=== PATIENT | female | born 1990 | race Caucasian/White ===

== ENCOUNTER 2020-01-18 16:29 | Emergency (ER) | payer OTHER, SELFPAY ==
--- NOTE | ~2020-01-18 | US_ITS ---
EXAMINATION: US OB <= 14 weeks fetus DATE: 01/18/2020 18:40 INDICATION: Bleeding and cramping during first trimester , reported history of prior subchor ionic hematoma on outside hospital imaging TECHNIQUE: Real-time pelvic transabdominal and transvaginal ultrasound was performed. COMPARISON: None. FINDINGS: The uterus measures 10.5 x 7.4 x 7.0 cm. There is an intrauterine gestational sac. There i s a moderate to large size subchorionic hematoma which measures 4.2 x 3.1 x 3.1 cm. A yolk sac is harpreet ntified. heart motion is identified measuring 161 beats per minute (bpm) by M-mode Doppler. The crown rump length measures 2.4 cm , which correlates with an estimated gestational age of 9 we eks and 1 day(s) (+/-) 6 day(s). The ovaries are not visualized however no adnexal abnormality is seen. There is no free fluid in the pelvis. IMPRESSION: 1. Live intrauterine with an estimated gestational age of 9 weeks and 1 day(s) (+/-) 6 day( s) and an estimated delivery date of 08/21/2020. 2. Moderate to large subchorionic hemorrhage. Reviewed, dictated and finalized at location A. IMPRESSION: 1. Live intrauterine with an estimated gestational age of 9 weeks and 1 day(s) (+/-) 6 day(s) and an estimated delivery date of 08/21/2020. 2. Moderate to large subchorionic hemorrhage.
[2020-01-18 17:02] VITALS: BP 98/54; PULSE 72; RESP 18; TEMP 36.8; O2SAT 100
[2020-01-18 17:19] LABS: Basophils Absolute Auto 0.1 K/mm3 (0.0-0.1); Basophils Percent Auto 0.5 % (0.2-1.2); Eosinophils Absolute Auto 0.3 K/mm3 (0-0.3); Eosinophils Percent Auto 2.9 % (0-4.4); Hematocrit 37.3 % (37.0-47.0); Hemoglobin 12.7 g/dL (12.0-15.0); Immature Granulocyte Absolute 0.03 K/mm3 (0.00-0.031); Immature Granulocyte Percent A 0.3 % (0-0.5); Lymphocytes Absolute Auto 1.95 K/mm3 (0.9-3.2); Lymphocytes Percent Auto 18.8 % (18.3-44.2); Mean Corpuscular Hemoglobin 31.7 pg (26-34); Mean Platelet Volume 10.5 fl (7.4-10.4); Monocytes Absolute Auto 0.7 K/mm3 (0.1-0.6); Monocytes Percent Auto 6.6 % (2.6-8.5); Neutrophils Absolute Auto 7.4 K/mm3 (1.3-6.7); Neutrophils Percent Auto 70.9 % (45.5-73.1); Platelet Count Result 291 k/mm3 (150-375); Red Blood Count 4.01 M/mm3 (4.2-5.4); Red Cell Distribution Width 12.2 % (11.5-14.5); White Blood Count 10.4 K/mm3 (4.5-10.0)
--- NOTE | 2020-01-18 17:38 | PC.NURSE ---
Patient has already been given RhoGam by [facility]IN
[2020-01-18 17:55] VITALS: BP 89/55; BP 96/61; BP 98/61; PULSE 74; PULSE 77
--- NOTE | 2020-01-18 18:22 | ED.FEMALEGU ---
HPI - Female Genitourinary General Chief complaint: Vaginal Bleeding <Kimberly Ray PA-C - Last Filed: 01/18/20 20:12> Stated complaint: 9wks preg, bleeding/cramping <Kimberly Ray PA-C - Last Filed: 01/18/20 20:12> Time Seen by Provider: 01/18/20 17:43 <CAIO Saavedra Last Filed: 01/18/20 20:12> Source: patient <CAIO Saavedra Last Filed: 01/18/20 20:12> Mode of arrival: ambulatory <CAIO Saavedra Last Filed: 01/18/20 20:12> Limitations: no limitations <CAIO Saavedra Last Filed: 01/18/20 20:12> History of Present Illness HPI Narrative: Patient presents with chief complaint of vaginal bleeding that has intensified and was accompanied by cramping just prior to arrival. Patient states that she is approximately 9.5 weeks and was told that she has hemorrhaging in her uterus and that is why she is bleeding. Patient states that the bleeding originally presented 5 weeks ago but she stopped bleeding for over 1 week prior to today. Patient denies fever, chills, nausea, vomiting, diarrhea. Patient is G3, P2 without any prior complications. Patient states that she is O- and when her bleeding began 5 weeks ago her AMMONIA NITRATE OPERATOR Dr. Ontiveros at [facility] gave her a RhoGam shot. Patient states that she feels that something is going on that is not quite right so she came to the emergency department to be evaluated. <Kimberly Ray PA-C - Last Filed: 01/18/20 20:12> Related Data Home medications: Home Medications Medication Instructions Recorded Confirmed progesterone micronized 200 mg PO DAILY 01/18/20 <CAIO Saavedra Last Filed: 01/18/20 20:12> Allergies/Adverse reactions: Allergies Allergy/AdvReac Type Severity Reaction Status Date / Time codeine Allergy Unknown HEADACHE Verified 01/18/20 17:31 <CAIO Saavedra Last Filed: 01/18/20 20:12> Review of Systems Review of Systems: Narrative: CONSTITUTIONAL: Denies fever, chills, or sweats. EYES: Denies visual changes, redness, or discharge. ENT: Denies rhinorrhea, congestion, sore throat, or otalgia. CARDIOVASCULAR: Denies chest pain, palpitations, or edema. RESPIRATORY: Denies cough or dyspnea. GASTROINTESTINAL: Denies abdominal pain, nausea, vomiting, or diarrhea. GENITOURINARY: Reports vaginal bleeding in denies dysuria or hematuria. SKIN: Denies rash or itching. MUSCULOSKELETAL: Denies back pain, myalgia, or joint pain NEUROLOGIC: Denies headache, numbness, dizziness, or weakness. PSYCHIATRIC: Denies anxiety or depression. <Kimberly Ray PA-C - Last Filed: 01/18/20 20:12> Exam Narrative: Exam Narrative: GENERAL: Well-appearing, well-nourished. HEAD: Normocephalic, atraumatic. EYES: PERRLA and EOMI. ENT: Nares clear, no rhinorrhea or epistaxis. Mucous membranes moist. Oropharynx without tonsillar hypertrophy exudate or other lesions. Bilateral TMs pearly webb nonbulging NECK: Supple. No adenopathy or masses. No vertebral tenderness or loss of ROM. CHEST: Clear to auscultation. No respiratory distress. No wheezes rales or rhonchi HEART: Regular rate and rhythm. Normal peripheral pulses. ABDOMEN: Soft, nontender, nondistended, normal active bowel sounds. No bruises noted. VAGINAL: Mild dark red vaginal bleeding from cervix, no clots or tissues noted. OS closed. EXTREMITIES: No acute changes in ROM. No edema. SKIN: Warm, dry, no rash. NEURO: No focal deficits. Alert and oriented x3. PSYCH: Normal mood and affect. <Kimberly Ray PA-C - Last Filed: 01/18/20 20:12> Course Vital Signs Vital signs: Vital Signs Temperature 36.8 C 01/18/20 17:02 Pulse Rate 72 01/18/20 17:02 Respiratory Rate 18 01/18/20 17:02 Blood Pressure 98/54 L 01/18/20 17:02 Pulse Oximetry 100 01/18/20 17:02 Temperature 36.8 C 01/18/20 17:02 Pulse Rate 83 01/18/20 19:31 Respiratory Rate 17 01/18/20 18:36 Blood Pressure 102/63
--- NOTE | 2020-01-18 18:33 | PC.NURSE ---
Patient returned to room
[2020-01-18 18:36] VITALS: BP 120/59; PULSE 85; RESP 17; O2SAT 95
[2020-01-18 19:31] VITALS: BP 102/63; PULSE 83; O2SAT 100
[2020-01-18 20:28] VITALS: BP 99/51; PULSE 86; RESP 17; O2SAT 98
== END 2020-01-18 20:29 | disposition home or self-care (01) ==
PROVIDERS: Emergency Provider Emergency Medicine
DX: O46.8X1 Other antepartum hemorrhage, first trimester (principal); Z3A.09 9 weeks gestation of pregnancy
CPT/HCPCS: 36415; 76801; 84702; 85025; 85461; 86880; 86902; 99284

== ENCOUNTER 2020-03-09 07:41 | Emergency (ER) | payer OTHER, SELFPAY ==
[2020-03-09] VITALS (7 sets, daily range): BP systolic 101–109; BP diastolic 57–88; PULSE 75–80; RESP 18; TEMP 36.5; O2SAT 100
--- NOTE | 2020-03-09 07:54 | PC.NURSE ---
Pt to ED with complaints of abdominal cramping x1 week. Pt states she is currently 16 weeks . Pt has known subchorionic hemorrhage which she reports had gotten bigger with last ultrasound. Pt is scheduled to follow up on 03/26 for repeat ultrasound. Pt denies vaginal bleeding, discharge, or symptoms. Dr. Patricia at bedside with ultrasound.
--- NOTE | 2020-03-09 08:00 | ED.ABDPAIN ---
HPI - Abdominal Pain General Chief Complaint: Unspecified Stated Complaint: 16 wks , cramping Time Seen by Provider: 03/09/20 07:45 History of Present Illness HPI narrative: 29 yo female at approximately 16 weeks gestation presents to the ED for abdominal cramping. She has had cramps for a few weeks, getting worse. Constatn. Mild improvement with Tylenol. Know large subchorionic hemorrhage seen on US. No vaginal bleeding/discharge, nausea, vomiting, diarrhea, fever. Related Data Home Medications Medication Instructions Recorded Confirmed progesterone micronized 200 mg PO DAILY 01/18/20 03/09/20 Allergies Allergy/AdvReac Type Severity Reaction Status Date / Time codeine AdvReac Unknown HEADACHE Verified 03/09/20 07:50 Review of Systems Review of Systems: All systems reviewed & are unremarkable except as noted in HPI and below Constitutional: Constitutional: Denies chills and Denies fever(s) Cardiovascular: Cardiovascular: Denies chest pain Respiratory: Respiratory: Denies dyspnea Gastrointestinal: Gastrointestinal: Reports abdominal pain, Reports constipation, Denies diarrhea, Denies nausea and Denies vomiting Genitourinary: Genitourinary: Denies abnormal vaginal bleeding, Denies dysuria and Denies vaginal discharge Musculoskeletal: Musculoskeletal: Denies back pain Neurologic: Denies dizziness and Denies weakness [facility] Social History Social History Gender identity (if verbalized by the patient): Female Exam Const: General: healthy appearing, no acute distress and alert Orientation/consciousness: patient oriented x3 HENMT: Head: normal to inspection Neck: Neck: normal visual inspection and no lymphadenopathy Chest: Chest palpation & inspection: no tenderness Resp: Effort & Inspection: normal respiratory effort Auscultation: clear to auscultation bilaterally, no rales, no rhonchi and no wheezes Cardio: Jugular venous distension: no JVD Rate: regular rate Rhythm: regular rhythm Heart sounds: no murmurs GI: Inspection: non-distended GI Palp: Yes Soft to palpation, Yes Tenderness to palpation present (GI) (mild, suprapubic), No Guarding due to palpation present (GI) and No Rebound tenderness present Skin: General skin exam: normal color Neuro: General: patient oriented x3 and moves all extremities Speech: normal speech Extrem: General: no edema Psych: Appearance: well kempt Affect: normal affect Procedures Other Procedure Procedure 1: Other Procedure: Bedside Ultrasound Fetus grossly normal for reported dates FHR 158 apparent large subchorionic hematoma Course Vital Signs Vital signs: Vital Signs Temperature 36.5 C 03/09/20 07:47 Pulse Rate 80 03/09/20 07:47 Respiratory Rate 18 03/09/20 07:47 Blood Pressure 109/88 03/09/20 07:47 Pulse Oximetry 100 03/09/20 07:47 Temperature 36.5 C 03/09/20 07:47 Pulse Rate 75 03/09/20 09:22 Respiratory Rate 18 03/09/20 09:22 Blood Pressure 101/57 L 03/09/20 09:24 Pulse Oximetry 100 03/09/20 09:22 MDM - Abdominal Pain MDM Narrative Medical decision making narrative: Feeling better after dicyclomine. rh negative, but no bleeding at this time requiring rhogam Differential Diagnosis Differential diagnosis: Likely abdominal pain, constipation and other (subchorionic hematoma, UTI) Medical Records Attestation: I reviewed the patient's medical records. Lab Data Attestation: I reviewed the patient's lab results. Labs: Lab Results 03/09/20 Range/Units 08:24 Urine Color Yellow (Yellow) Urine Appearance Cloudy H (Clear) Urine pH 6.0 (5.0-9.0) Ur Specific [place] 1.024 (1.001-1.035) Urine Protein 1+ H (Negative) mg/dL Urine Glucose (UA) Negative (Negative) mg/dL Urine Ketones Negative (Negative) mg/dL Ur Blood (Man) 1+ H (Negative) Urine Nitrate Negative (Negative) Urine Bilir
[2020-03-09] MEDS: DICYCLOMINE HCL INJ 20 MG/2 ML VIAL IM (08:09)
[2020-03-09 08:46] LABS: Add Urine Microscopic? YES; Appearance Urine Cloudy (Clear); Bacteria Urine Trace /hpf; Bilirubin Urine Negative (Negative); Blood Urine 1+ (Negative); Color Urine Yellow (Yellow); Glucose Urine UA Negative (Negative); Ketones Urine Negative (Negative); Leukocyte Esterase Ur Negative LEU/UL (Negative); Mucus Urine Moderate /lpf; Nitrate Urine Negative (Negative); Protein Urine 1+ mg/dL (Negative); Specific Grav Ur 1.024 (1.001-1.035); Squamous Epithelial Cell Urine Many /hpf (Few); Urobilinogen Urine Negative mg/dL (<2.0); WBC Urine 0-3 /hpf
== END 2020-03-09 09:30 | disposition home or self-care (01) ==
PROVIDERS: Emergency Provider Emergency Medicine
DX: O26.892 Other specified pregnancy related conditions, second trimester (principal); R10.9 Unspecified abdominal pain; O46.8X2 Other antepartum hemorrhage, second trimester; Z3A.16 16 weeks gestation of pregnancy
CPT/HCPCS: 81001; 96372; 99283; J0500

== ENCOUNTER 2020-03-13 16:30 | Observation (INO) | payer OTHER, SELFPAY ==
[2020-03-13] VITALS (15 sets, daily range): BP systolic 44–124; BP diastolic 28–92; PULSE 71–118; RESP 18; TEMP 36.6–36.8; BMI 24.2
--- NOTE | ~2020-03-13 | US_ITS ---
EXAMINATION: US OB limited DATE: 03/13/2020 18:34 INDICATION: Assess well-being, placenta and cervical length during second trimester of pregnanc y TECHNIQUE: Real-time ultrasound of the pelvis was performed. The interpreting radiologist was not pre sent for the study. COMPARISON: 01/18/2020 FINDINGS: There is a single living fetus in transverse lie with head to maternal right. The placenta is posteri or with caudal margin 3.5 cm from the internal cervical os. heart rate is 144 beats per minute (bpm). The amniotic fluid volume is subjectively normal. Normal cervical length of 4.1 cm. IMPRESSION: 1. Single living fetus in transverse lie with heart rate of 144 bpm. 2. Normal posterior placenta and normal cervical length of 4.1 cm. Reviewed, dictated and finalized at location A. SPORT INSTRUCTOR
--- NOTE | 2020-03-13 16:30 | OBADM ---
This patient, Brittani Orr, admitted to the OB room OB Post 117 for observation. Patient/family oriented to hospital policies and general routines including ID bracelet, bed and alarms, visiting hours, pain management, procedures, bathroom and other care routines, personal items, smoking policy, room service/diet, and visiting hours. Patient/Family are encouraged to report perceived risks to care and to ask questions if they do not understand what they are told or what they should do.
--- NOTE | 2020-03-13 17:00 | PC.NURSE ---
Called Dr. Pastor and notified pt admission from ED for vaginal bleeding. reported amount of vaginal bleeding and FHT 160 via Doppler order received for IV, Lab, KB, Type Ultrasound. .
[2020-03-13 17:32] LABS: Basophils Absolute Auto 0.1 K/mm3 (0.0-0.1); Basophils Percent Auto 0.4 % (0.2-1.2); Eosinophils Absolute Auto 0.2 K/mm3 (0-0.3); Eosinophils Percent Auto 1.4 % (0-4.4); Hematocrit 33.1 % (37.0-47.0); Hemoglobin 11.3 g/dL (12.0-15.0); Immature Granulocyte Absolute 0.07 K/mm3 (0.00-0.031); Immature Granulocyte Percent A 0.4 % (0-0.5); Lymphocytes Absolute Auto 1.54 K/mm3 (0.9-3.2); Lymphocytes Percent Auto 9.5 % (18.3-44.2); Mean Corpuscular HGB Conc 34.1 g/dl (32-36); Mean Corpuscular Hemoglobin 32.4 pg (26-34); Mean Corpuscular Volume 94.8 fl (80-100); Monocytes Absolute Auto 0.9 K/mm3 (0.1-0.6); Monocytes Percent Auto 5.3 % (2.6-8.5); Neutrophils Absolute Auto 13.5 K/mm3 (1.3-6.7); Platelet Count Result 223 k/mm3 (150-375); Red Blood Count 3.49 M/mm3 (4.2-5.4); Red Cell Distribution Width 12.9 % (11.5-14.5); White Blood Count 16.3 K/mm3 (4.5-10.0)
[2020-03-13] MEDS: LACTATED RINGERS 1,000 ML 150 ML IV CONT (20:11)
[2020-03-13] MEDS: RHO(D) IMMUNE GLOBULIN 300 MCG SYRINGE IM (23:03)
[2020-03-14 00:35] VITALS: BP 156/129; PULSE 131
[2020-03-14 00:39] VITALS: BP 110/59; PULSE 80
[2020-03-14] MEDS: LACTATED RINGERS 1,000 ML 150 ML IV CONT (02:57)
[2020-03-14 02:59] VITALS: BP 95/53; PULSE 72
[2020-03-14 05:47] LABS: Basophils Percent Auto 0.3 % (0.2-1.2); Eosinophils Absolute Auto 0.3 K/mm3 (0-0.3); Eosinophils Percent Auto 2.5 % (0-4.4); Hematocrit 27.9 % (37.0-47.0); Hemoglobin 9.6 g/dL (12.0-15.0); Immature Granulocyte Absolute 0.06 K/mm3 (0.00-0.031); Immature Granulocyte Percent A 0.6 % (0-0.5); Lymphocytes Absolute Auto 1.86 K/mm3 (0.9-3.2); Lymphocytes Percent Auto 17.2 % (18.3-44.2); Mean Corpuscular HGB Conc 34.4 g/dl (32-36); Mean Platelet Volume 10.1 fl (7.4-10.4); Monocytes Absolute Auto 0.7 K/mm3 (0.1-0.6); Monocytes Percent Auto 6.3 % (2.6-8.5); Neutrophils Absolute Auto 7.9 K/mm3 (1.3-6.7); Neutrophils Percent Auto 73.1 % (45.5-73.1); Platelet Count Result 180 k/mm3 (150-375); Red Cell Distribution Width 12.8 % (11.5-14.5); White Blood Count 10.8 K/mm3 (4.5-10.0)
[2020-03-14 06:21] VITALS: BP 104/60; PULSE 75
--- NOTE | 2020-03-14 07:02 | PC.NURSE ---
0645--Pt reports small amount of bleeding with urination-small amount observed with small pea-sized clot. Pt reports no pain.
--- NOTE | 2020-03-14 10:10 | PC.NURSE ---
1000--Vss. Pt reports no pain. No vaginal bleeding upon urination.Dr. Pastor at bedside to discuss plan of care. DC orders given.
--- NOTE | 2020-03-14 10:16 | PM.IMHP ---
H&P: HPI History of Present Illness Date/Time: 03/14/20 10:16 Chief complaint: vaginal bleeding Narrative: Brittani Orr is a 29 year old female at 17 weeks who came in through ER 03/13/2020 for c/o vaginal bleeding similar to a heavy period. She is a patient of Dr. Rothman in [place] and has had 1st trimester bleeding and subchorionic hemorrhage this . She has mild cramping. No CP, SOB, dizziness. No problems in first two pregnancies. Review of Systems Review of Systems: All systems reviewed & are unremarkable except as noted in HPI and below PMFSH Social History Social History Gender identity (if verbalized by the patient): Female Meds Home Medications and Allergies Home Medications Medication Instructions Recorded Confirmed Type progesterone micronized 200 mg PO DAILY 01/18/20 03/13/20 History 1 tab-cap PO DAILY 03/09/20 03/13/20 History dicyclomine 10 mg PO TID #10 cap 03/09/20 03/13/20 Rx Allergies Allergy/AdvReac Type Severity Reaction Status Date / Time codeine AdvReac Unknown HEADACHE Verified 03/09/20 07:50 Vital Signs Vital Signs - 24 hr 03/13/20 16:48 03/13/20 17:01 03/13/20 17:58 Temperature 36.8 C Pulse Rate 95 87 Respiratory Rate 18 Blood Pressure 124/78 108/63 03/13/20 18:33 03/13/20 18:46 03/13/20 18:48 Temperature Pulse Rate 71 118 H 75 Respiratory Rate Blood Pressure 105/51 L 44/28 L 103/62 03/13/20 19:03 03/13/20 19:17 03/13/20 19:30 Temperature Pulse Rate 71 81 78 Respiratory Rate Blood Pressure 113/65 111/73 110/92 H 03/13/20 19:33 03/13/20 19:35 03/13/20 20:02 Temperature Pulse Rate 82 82 72 Respiratory Rate Blood Pressure 78/35 L 99/56 L 100/80 03/13/20 21:00 03/13/20 22:00 03/13/20 22:01 Temperature 36.6 C Pulse Rate 92 73 Respiratory Rate Blood Pressure 109/49 L 101/52 L 03/14/20 00:35 03/14/20 00:39 03/14/20 02:59 Temperature Pulse Rate 131 H 80 72 Respiratory Rate Blood Pressure 156/129 H 110/59 L 95/53 L 03/14/20 06:21 Temperature Pulse Rate 75 Respiratory Rate Blood Pressure 104/60 Exam Const: General: healthy appearing and no acute distress Resp: Auscultation: clear to auscultation bilaterally Cardio: Rate: regular rate Rhythm: regular rhythm GI: Inspection: normal to inspection and non-distended GI Palp: Yes Soft to palpation and No Tenderness to palpation present (GI) : OB/external & speculum: external exam normal and Active bleeding present Manual OB Exam: Not dilated nor effaced Extrem: General: no pedal edema and no calf tenderness Psych: Mental Status: mental status grossly normal H&P: Results Labs Labs: Short CBC 03/13/20 03/14/20 Range/Units 17:22 05:07 WBC 16.3 H 10.8 H (4.5-10.0) K/mm3 Hgb 11.3 L 9.6 L (12.0-15.0) g/dL Hct 33.1 L 27.9 L (37.0-47.0) % Plt Count 223 180 (150-375) k/mm3 Assessment and Plan Assessment and plan (1) Threatened in second trimester: Code(s): O20.0 - Threatened Status: Acute Assessment and Plan: Viable fetus with no visible subchorionic hemorrhage on ultrasound. Observe and monitor bleeding closely. Plan to repeat CBC (no anemia on admission). Patient was counseled that fetus is not viable outside at this gestational age, and all we can do is watch and wait. Bleeding may stop, and she may continue to carry this indefinitely; or bleeding may worsen, which could lead to miscarriage or intrauterine demise. I do recommend pelvic rest and avoiding any unnecessary strenuous activity such as heavy lifting. She expressed understanding. (2) Rh negative status during in second trimester, antepartum: Code(s): O26.892 - Other specified related conditions, second trimester; Z67.91 - Unspecified blood type, Rh negative Status: Acute A
--- NOTE | 2020-03-14 10:24 | PM.OBDSVD ---
DS: Admitting Diagnosis Admitting Diagnosis Admitting Diagnosis: vaginal bleeding DS: Discharge Diagnosis Discharge Diagnosis (1) Threatened in second trimester: Code(s): O20.0 - Threatened Status: Acute (2) Rh negative status during in second trimester, antepartum: Code(s): O26.892 - Other specified related conditions, second trimester; Z67.91 - Unspecified blood type, Rh negative Status: Acute OB - DS: Summary OB Procedures : None OB Procedures Intrapartum: Other OB Procedures: : None Time Spent with Patient Time attestation: Total time spent providing and/or coordinating discharge services: DS: Data Data Completed and Pending Labs on day of discharge: Labs from last 24 hours 03/14/20 03/13/20 03/13/20 05:07 17:22 17:22 WBC 10.8 H 16.3 H RBC 3.00 L 3.49 L Hgb 9.6 L 11.3 L Hct 27.9 L 33.1 L MCV 93.0 94.8 MCH 32.0 32.4 MCHC 34.4 34.1 RDW 12.8 12.9 Plt Count 180 223 MPV 10.1 10.0 Immature Gran % (Auto) 0.6 H 0.4 Neut % (Auto) 73.1 83.0 H Lymph % (Auto) 17.2 L 9.5 L [place] % (Auto) 6.3 5.3 Eos % (Auto) 2.5 1.4 Baso % (Auto) 0.3 0.4 Lymph # (Auto) 1.86 1.54 [place] # (Auto) 0.7 H 0.9 H Eos # (Auto) 0.3 0.2 Baso # (Auto) 0.0 0.1 Abs Immat Gran (auto) 0.06 H 0.07 H Absolute Neuts (auto) 7.9 H 13.5 H Absolute Nucleated RBC 0.0 0.0 Nucleated RBC % 0.0 0.0 Blood Type O Negative Antibody Screen Negative Screen Negative KB Hemoglobin Negative Doses of RhIg Required 1 Discharge Plan Discharge Attending physician on discharge: Seema Pastor Discharging Clinician: Seema Pastor Patient Disposition: Home, Self-Care Activity: may shower and pelvic rest Diet: as tolerated Patient Instructions: Antibiotic Form Stand Alone Forms: General Discharge Information Follow-up/Referrals: [facility] [Outside] (Call Dr. Rothman greenstone polisher operator today to arrange follow up) Discharge Medications: Continued progesterone micronized 200 mg capsule 200 mg PO DAILY RF: 0 dicyclomine 10 mg capsule 10 mg PO TID Qty: 10 RF: 0 No Action 1 tab-cap PO DAILY RF: 0 Date of admission: 03/13/20 16:30 Primary Care Provider: PHYSICIAN,FLOAT PHLEBOTOMIST Admitting Provider: Seema Pastor Attending physician on admission: Seema Pastor Condition: Improved
--- NOTE | 2020-03-14 10:27 | P.PNOB_ITS ---
OB - PN: Subj Subjective Date/time seen: 03/14/20 10:27 Bleeding has slowed overnight and now is minimal and 'stringy. No further cramping. No leaking fluid. + movement OB - PN: Obj Data Labs CBC & Chem 7: 03/14/20 05:07 Labs: Laboratory Results - last 24 hr 03/13/20 03/13/20 03/14/20 17:22 17:22 05:07 WBC 16.3 H 10.8 H RBC 3.49 L 3.00 L Hgb 11.3 L 9.6 L Hct 33.1 L 27.9 L MCV 94.8 93.0 MCH 32.4 32.0 MCHC 34.1 34.4 RDW 12.9 12.8 Plt Count 223 180 MPV 10.0 10.1 Immature Gran % (Auto) 0.4 0.6 H Neut % (Auto) 83.0 H 73.1 Lymph % (Auto) 9.5 L 17.2 L [place] % (Auto) 5.3 6.3 Eos % (Auto) 1.4 2.5 Baso % (Auto) 0.4 0.3 Lymph # (Auto) 1.54 1.86 [place] # (Auto) 0.9 H 0.7 H Eos # (Auto) 0.2 0.3 Baso # (Auto) 0.1 0.0 Abs Immat Gran (auto) 0.07 H 0.06 H Absolute Neuts (auto) 13.5 H 7.9 H Absolute Nucleated RBC 0.0 0.0 Nucleated RBC % 0.0 0.0 Blood Type O Negative Antibody Screen Negative Screen Negative KB Hemoglobin Negative Doses of RhIg Required 1 Imaging Radiologist's impression: Impressions Obstetrics Ultrasound 03/13/20 18:47 IMPRESSION: 1. Single living fetus in transverse lie with heart rate of 144 bpm. 2. Normal posterior placenta and normal cervical length of 4.1 cm. OB - PN A/P Assessment and Plan (1) Threatened in second trimester: Code(s): O20.0 - Threatened Status: Acute Assessment and Plan: Bleeding has slowed and fetus viable. Discharge home. I advised pelvic rest an d to avoid strenuous activity and heavy lifting for now. Call her regular environmental remediation specialist Dr. Rothman today to arrange follow up. (2) Rh negative status during in second trimester, antepartum: Code(s): O26.892 - Other specified related conditions, second trimester; Z67.91 - Unspecified blood type, Rh negative Status: Acute Assessment and Plan: She received rhogam 03/13. KB negative Time Spent With Patient Time: Total time spent is greater than 50% in coordination of care (as documented) at patient's floor/unit and/or counseling patient: Review of Systems Review of Systems: All systems reviewed & are unremarkable except as noted in HPI and below Exam Const: General: no acute distress and alert Resp: Auscultation: clear to auscultation bilaterally Cardio: Rate: regular rate Rhythm: regular rhythm GI: Inspection: non-distended GI Palp: Yes Soft to palpation and No Tenderness to palpation present (GI) : Manual OB Exam: Not dilated nor effaced Extrem: General: no pedal edema and no calf tenderness Psych: Mental Status: mental status grossly normal
== END 2020-03-14 10:38 | disposition home or self-care (01) ==
PROVIDERS: Admitting Provider Obstetrics & Gynecology; Visit Provider Obstetrics & Gynecology
DX: O20.0 Threatened abortion (principal); Z3A.17 17 weeks gestation of pregnancy; O36.0120 Maternal care for anti-D [Rh] antibodies, second trimester, not applicable or unspecified; O26.892 Other specified pregnancy related conditions, second trimester
CPT/HCPCS: 36415; 76815; 85025; 85460; 85461; 90384; 96360; 96361; 96372; G0378; G0379; J2790; J7120

== ENCOUNTER 2020-03-27 09:33 | Emergency (ER) | payer OTHER, SELFPAY ==
--- NOTE | ~2020-03-27 | US_ITS ---
EXAMINATION: US OB limited DATE: 03/27/2020 11:09 INDICATION: Vaginal bleeding. Second trimester. TECHNIQUE: Real-time ultrasound of the pelvis was performed. COMPARISON: Ultrasound 03/13/2020, 01/18/2020 FINDINGS: There is a single fetus in transverse lie. The placenta is fundal and posterior. There is a 3.3 x 3. 6 x 1.2 cm subchorionic hematoma. heart rate is 144 beats per minute (bpm). The amniotic fluid volume is subjectively normal. IMPRESSION: 1. Single living fetus in transverse lie. 2. Subchorionic hematoma. Reviewed, dictated and finalized at location A. DESIGNER/CREATIVE DIRECTOR
[2020-03-27 09:44] VITALS: BP 119/70; PULSE 73; RESP 18; TEMP 36.7; O2SAT 100
--- NOTE | 2020-03-27 10:04 | ED.GENADULT ---
HPI - General Adult General Chief complaint: Abdominal Pain Stated complaint: CRAMPING Time Seen by Provider: 03/27/20 09:41 Source: patient Mode of arrival: EMS Limitations: no limitations History of Present Illness HPI narrative: Patient is a 29 year old female at 19 weeks who came in through ER 03/13/2020 been presented to the [facility] on 03/14/2020 for cramping and bleeding. She was seen by Dr Pastor, diagnosed with threatened , and discharged home to follow up with her OBGYN Dr Rothman in [place]. Patient states she saw her OBGYN Dr Rothman on and was told she may be moving to a higher level of care and delivery at [employer]. She has had bleeding that began in the first trimester and second and subchorionic hemorrhage this . She reports she had sudden onset cramping at 9am that has now subsided but she can tell it will come back. She has begun having a small amount of dark bleeding. Patient is RH negative and was given Rhogam durig her 03/14/2020 visit. No CP, SOB, dizziness. No problems in first two pregnancies. Related Data Home Medications Medication Instructions Recorded Confirmed progesterone micronized 200 mg PO DAILY 01/18/20 03/13/20 1 tab-cap PO DAILY 03/09/20 03/13/20 Allergies Allergy/AdvReac Type Severity Reaction Status Date / Time codeine AdvReac Unknown HEADACHE Verified 03/27/20 09:50 Review of Systems Review of Systems: Narrative: CONSTITUTIONAL: Denies fever, chills, or sweats. EYES: Denies visual changes, redness, or discharge. ENT: Denies rhinorrhea, congestion, sore throat, or otalgia. CARDIOVASCULAR: Denies chest pain, palpitations, or edema. RESPIRATORY: Denies cough or dyspnea. GASTROINTESTINAL: Denies abdominal pain, nausea, vomiting, or diarrhea. GENITOURINARY: Reports pelvic cramping and bleeding denies dysuria or hematuria. SKIN: Denies rash or itching. MUSCULOSKELETAL: Denies back pain, joint pain, or myalgia. NEUROLOGIC: Denies headache, numbness, dizziness, or weakness. PSYCHIATRIC: Denies anxiety or depression. [facility] Social History Social History Gender identity (if verbalized by the patient): Female Exam Narrative: Exam Narrative: GENERAL: Well-appearing, well-nourished, and in no acute distress. HEAD: Normocephalic, atraumatic. EYES: PERRLA and EOMI. NECK: Supple. No adenopathy or masses. CHEST: Clear to auscultation. No respiratory distress. No wheezes rales or rhonchi HEART: Regular rate and rhythm. No murmur heard. Normal peripheral pulses. ABDOMEN: Soft, mild tenderness with palpation of lower pelvic abdomen, nondistended, normal active bowel sounds. : Large amount of bloo din vaginal canal. Suction used to attempt to see cervix however patient states the speculum exam is to uncomfortable and it had to be stopped without direct visualization of the cervix. No large clots or tissue noted in the vault. EXTREMITIES: Normal range of motion. No edema. SKIN: Warm, dry, no rash. NEURO: No focal deficits. Alert and oriented x3. PSYCH: Normal mood and affect. Course Vital Signs Vital signs: Vital Signs Temperature 98.1 F 03/27/20 09:44 Pulse Rate 73 03/27/20 09:44 Respiratory Rate 18 03/27/20 09:44 Blood Pressure 119/70 03/27/20 09:44 Pulse Oximetry 100 03/27/20 09:44 Temperature 98.1 F 03/27/20 09:44 Pulse Rate 79 03/27/20 11:45 Respiratory Rate 22 H 03/27/20 11:45 Blood Pressure 125/74 03/27/20 11:45 Pulse Oximetry 100 03/27/20 11:45 Medical Decision Making MDM Narrative Medical decision making narrative: Patient is very upset because she wants somebody to make the bleeding stopped immediately and to tell her why it is that she continues to have intermittent cramping and bleeding throughout her when she has not had this with any of her other 2 pregnancies. When I explained to the patient that I am unable to give her
[2020-03-27 10:24] LABS: Basophils Absolute Auto 0.1 K/mm3 (0.0-0.1); Basophils Percent Auto 0.4 % (0.2-1.2); Eosinophils Absolute Auto 0.3 K/mm3 (0-0.3); Eosinophils Percent Auto 1.2 % (0-4.4); Hematocrit 35.7 % (37.0-47.0); Hemoglobin 12.1 g/dL (12.0-15.0); Immature Granulocyte Absolute 0.15 K/mm3 (0.00-0.031); Immature Granulocyte Percent A 0.7 % (0-0.5); Mean Corpuscular HGB Conc 33.9 g/dl (32-36); Mean Corpuscular Hemoglobin 32.6 pg (26-34); Mean Corpuscular Volume 96.2 fl (80-100); Mean Platelet Volume 9.6 fl (7.4-10.4); Monocytes Absolute Auto 1.3 K/mm3 (0.1-0.6); Monocytes Percent Auto 5.8 % (2.6-8.5); Neutrophils Absolute Auto 18.8 K/mm3 (1.3-6.7); Neutrophils Percent Auto 83.9 % (45.5-73.1); Platelet Count Result 269 k/mm3 (150-375); Red Blood Count 3.71 M/mm3 (4.2-5.4); Red Cell Distribution Width 13.2 % (11.5-14.5); White Blood Count 22.4 K/mm3 (4.5-10.0)
[2020-03-27 10:38] LABS: Alanine Aminotransferase 9 U/L (4-35); Albumin Level 3.4 g/dL (3.5-5.1); Alkaline Phosphatase 62 U/L (38-126); Anion Gap 3 mmol/L (8-16); Aspartate Amino Transferase 26 U/L (14-36); Bilirubin,Total 0.7 mg/dL (0.2-1.3); Blood Urea Nitrogen 12 mg/dL (7-17); Calcium 8.5 mg/dL (8.4-10.2); Carbon Dioxide 24 mmol/L (22-30); Chloride 107 mmol/L (98-107); Estimated Glomerular Filt Rate > 60; Glucose 81 mg/dL (65-105); Potassium 3.8 mmol/L (3.4-5.0); Sodium 134 mmol/L (137-145)
--- NOTE | 2020-03-27 11:02 | PC.NURSE ---
pt to u/s via w/c
[2020-03-27 11:06] VITALS: BP 127/73; PULSE 73; RESP 20; O2SAT 100
[2020-03-27 11:45] VITALS: BP 125/74; PULSE 79; RESP 22; O2SAT 100
[2020-03-27 12:03] VITALS: BP 122/70; PULSE 79; RESP 21; O2SAT 100
== END 2020-03-27 12:04 | disposition left against medical advice (07) ==
PROVIDERS: Physician Assistant; Emergency Provider Emergency Medicine
DX: O46.8X2 Other antepartum hemorrhage, second trimester (principal); Z3A.19 19 weeks gestation of pregnancy
CPT/HCPCS: 36415; 76815; 80053; 85025; 99284

== ENCOUNTER 2024-10-10 13:30 | Emergency (ER) | payer SELFPAY ==
--- NOTE | ~2024-10-10 | XR_ITS ---
XR elbow LT min 3V Ordering provider: Nigel Moon APRN History: . injury last night, pain and swelling . Comparison: None. FINDINGS: BONES: No acute fracture or dislocation. JOINT SPACES: Normal. SOFT TISSUES: Normal. No definite joint effusion. IMPRESSION: No acute osseous abnormality left elbow. Repeat exam in 10 days if symptoms continues. Reviewed, dictated and finalized at location A.
[2024-10-10 13:41] VITALS: BP 129/78; PULSE 66; RESP 20; TEMP 36.8; O2SAT 100
--- NOTE | 2024-10-10 14:02 | ED_ITS ---
HPI - Extremity Injury (Upper) General Chief Complaint: Extremity Injury, Upper Stated Complaint: pain in left elbow Time Seen by Provider: 10/10/24 13:50 Source: patient and RN notes reviewed Mode of arrival: ambulatory Limitations: no limitations History of Present Illness HPI narrative: 33-year-old female presents Express Care complaining of left elbow injury yesterday. Reason last night she she was trying to get something out of a to a box 1 the lid of the tool box fell down and she blocked from hitting her head with her left elbow causing injury to the left elbow. Patient denies any other injuries or hitting her head. Patient reports having swelling and bruising to her left elbow. Reports some pain with certain movements of her left elbow. Patient denies any numbness or tingling. Patient has tried taking Aleve and [place] balm with some relief. Related Data Home Medications ?Medication ?Instructions ?Recorded ?Confirmed ?Last Taken ?Type progesterone micronized 200 mg 200 mg PO DAILY 01/18/20 03/13/20 Unknown History capsule 1 tab-cap PO DAILY 03/09/20 03/13/20 Unknown History buspirone 10 mg tablet mg 10/10/24 Unknown History escitalopram oxalate 20 mg tablet mg 10/10/24 Unknown History famotidine 20 mg tablet mg 10/10/24 Unknown History Allergies Allergy/AdvReac Type Severity Reaction Status Date / Time codeine AdvReac Unknown HEADACHE Verified 10/10/24 13:38 Review of Systems Review of Systems: CONSTITUTIONAL: Denies fever, chills, or sweats. EYES: Denies visual changes, redness, or discharge. ENT: Denies rhinorrhea, congestion, sore throat, or otalgia. CARDIOVASCULAR: Denies chest pain, palpitations, or edema. RESPIRATORY: Denies cough or dyspnea. GASTROINTESTINAL: Denies abdominal pain, nausea, vomiting, or diarrhea. GENITOURINARY: Denies dysuria or hematuria. SKIN: Denies rash, wound, or itching. MUSCULOSKELETAL: Denies back pain, joint pain, or myalgia. Positive for left elbow injury and swelling NEUROLOGIC: Denies headache, numbness, or weakness. PSYCHIATRIC: Denies anxiety or depression. All other systems reviewed are negative, except as documented in HPI. [facility] Social History Social History Gender identity (if verbalized by the patient): Female Comments At the time of my signature, I reviewed and agree with the nursing past medical, surgical, social, and family history. There is no relevant family history per tinent to the patient complaint. Exam Narrative: GENERAL: This is a well-nourished, well-developed adult, in no apparent distress. They are non ill-appearing, nontoxic appearing. HEAD: normocephalic, atraumatic. EYES: Sclera clear/white. Vision is grossly intact. Conjunctiva normal. Extraocular movement intact. EARS: External ears normal Hearing grossly intact. NOSE: External nose normal THROAT: Mucous membranes moist NECK: Neck supple CARDIOVASCULAR: Regular rate and rhythm RESPIRATORY: Respiratory rate normal, respiratory effort nonlabored, no respiratory distress NEURO: awake, alert, and oriented to person, place and time. There were no obvious focal neurologic abnormalities. EXTREMITIES: Left elbow: No obvious deformity. There is mild swelling bruising to the lateral posterior elbow. Mild tenderness through full range of motion. Tenderness to palpation a lateral elbow. Capillary refill less than 3 seconds. Left radial Pulse 2 +palpable. Normal sensation. Neurovascular status intact distal injury. Patient is able to wiggle her fingers. BACK: Nontender without deformity. Course Course Emergency Course: Portions of this record may have been created with voice recognition software Level of Care: Express Care Visit Vital Signs Vital signs: Vital Signs Temperature 98.3 F 10/10/24 13:41 Pulse Rate 66 10/10/24 13:41 Respiratory Rate 20 10/10/24 13:41 Blood Pressure 129/78 10/10/24 13:41 Pulse Oximetry 100 10/10/24 13:41 Oxygen Delivery Room Air 10/10/24 13:41 Temperature 98.3 F 10/10/24 13:41 Pulse Rate 66 10/10/24 13:41 Respiratory Rate 20 10/10/24 13:41 Blood Pressure 129/78 10/10/24 13:41 Pulse Oximetry 100 10/10/24 13:41 Oxygen Delivery Room Air 10/10/24 13:41 Reviewed MDM - Extremity Injury (Upper) MDM Narrative Medical decision making narrative: X-ray of left elbow shows no evidence of fracture or acute findings. Likely a elbow contusion from injury from tool box lid. Patient given Robin wrap for compression. Discussed physical exam findings. Advised supportive measures and signs/symptoms to go to the ER. Pt is appropriate for outpt treatment and f/u. Differential Diagnosis Differential diagnosis: Likely other (Elbow fracture, elbows sprain, soft tissue injury, elbow contusion) Imaging Data Radiologist's impression: ITS Impressions Elbow X-Ray 10/10/24 15:10 IMPRESSION: No acute osseous abnormality left elbow. Repeat exam in 10 days if symptoms continues. Critical Care Time Critical Care Time Critical Care Time: No Discharge Plan Discharge Clinical Impression: Contusion of elbow, left Qualifiers: Encounter type: initial encounter Qualified Code(s): S50.02XA - Contusion of left elbow, initial encounter Patient Disposition: Home Condition: Stable Instructions: Elbow Sprain (ED), Crush Injury (ED) Additional Instructions: The x-ray of her left elbow was negative for any fracture or acute findings. Rest and elevate the elbow; in usual left arm as tolerated Apply ice 15-20 minute intervals several times a day Keep it wrapped with ROBIN or use a compression elbow sleeve. Motrin 600mg -800mg every 8 hours, alternate with Tylenol 1000mg every 8 hours as needed Follow up with your primary care provider or orthopedist as needed in 10 14 days of pain is persisting. Patient Language: Vietnamese Prescriptions: No Action famotidine 20 mg tablet buspirone 10 mg tablet escitalopram oxalate 20 mg tablet progesterone micronized 200 mg capsule 200 mg PO DAILY 1 tab-cap PO DAILY dicyclomine 10 mg capsule 10 mg PO TID Qty: 10 0RF Follow-up/Referrals: Vernon,Michael [Other] Shadi Salgado MD [Physician] - Time of Disposition: 15:23
== END 2024-10-10 15:28 | disposition home or self-care (01) ==
DX: S50.02XA Contusion of left elbow, initial encounter (principal); W20.8XXA Other cause of strike by thrown, projected or falling object, initial encounter; K21.9 Gastro-esophageal reflux disease without esophagitis
CPT/HCPCS: 73080; 99213; G0463